=== PATIENT | male | born 1950 ===

== ENCOUNTER 2016-03-08 23:09 | Inpatient (IN) ==
[2016-03-09] MEDS ORDERED: ALUM/MAG/SIMETH/LIDO VISC 1:1 30 ML BOTTLE PO STA (00:51)
[2016-03-09] MEDS ORDERED: SODIUM CHLORIDE 0.9% 500 ML IV STA (00:51)
[2016-03-09] MEDS ORDERED: ONDANSETRON 4 MG/2 ML VIAL IV STA (00:51)
[2016-03-09] MEDS ORDERED: HYDROmorphone 2 MG/1 ML VIAL IV STA (00:51)
[2016-03-09] MEDS ORDERED: PANTOPRAZOLE 40 MG VIAL IV STA (00:51)
[2016-03-09] MEDS ORDERED: HYDROmorphone 2 MG/1 ML VIAL ONE (00:57)
[2016-03-09] MEDS ORDERED: PANTOPRAZOLE 40 MG VIAL IV ONE (00:57)
[2016-03-09] MEDS ORDERED: ONDANSETRON 4 MG/2 ML VIAL ONE ×2 (00:57→14:46)
[2016-03-09] MEDS ORDERED: ALUM/MAG/SIMETH/LIDO VISC 1:1 30 ML BOTTLE PO ONE (00:58)
[2016-03-09 01:33] LABS: Basophils % 0.4 % (0.0-0.8); Eosinophils # 0.1 10*3/uL (0.0-0.87); Eosinophils % 0.7 % (0.00-10.9); Hematocrit 47.7 VOL% (42.0-52.0); Hemoglobin 16.2 GM/DL (14.0-18.0); Immature Granulocytes % 0.4 %; Immature Granulocytes Absolute 0.03 #; Lymphocytes # 0.8 10*3/uL (1.4-4.0); Mean Corpuscular Hemoglobin 29 PG (27-34); Mean Corpuscular Volume 85.9 FL (87-102); Mean Platelet Volume 9.1 FL (9.6-12.0); Monocytes # 1.1 10*3/uL (0.11-0.8); Monocytes % 14.7 % (1.7-12.7); Neutrophils # 5.4 10*3/uL (1.4-7.4); Neutrophils % 72.8 % (38.7-73.9); Platelet Count 321 T/CUMM (130-400); Red Blood Count 5.55 MC/CUMM (3.8-5.5); Red Cell Distribution Width 13.1 % (9.3-17.3); White Blood Count 7.4 T/CUMM (4-12)
--- NOTE | 2016-03-09 01:33 | Emergency Department Note ---
Bobbi Castro Gwan, am scribing for, and in the presence of, Michael Hernandez MD 01 :17. Mary Castro Charles R, MD, personally performed the services described in this documentation, ascribed by Diandra Martines in my presence, and it is both accurate and complete . Arrival - Arrival Chief Complaint: Abdominal / Flank Pain Stated Complaint: vomitting ,gas ,pain due to hernia ED Nursing Triage Note: PT AMBULATORY TO TRIAGE WITH COMPLAINTS OF GAS AND HEARTBURN R/T HERNIA. STATES THAT HE WAS SEEN IN ED FOR SAME COMPLAINT AND WAS GIVEN PAIN MEDICINE AND REFERRED TO A SURGEON. STATES THAT HE CAN NOT WAIT TO SEE HIM. STATES THAT HE IS TOO SICK TO WAIT. STATES THAT HE VOMITED ONCE PRIOR TO COMING TO ED. STATES THAT HE HAD PRESSURE IN HIS BELLY AND HE FEELS LIKE HE MAY VOMIT AGAIN. STATES HE DRANK A COKE TO SEE IF THAT WOULD HELP AND IT MADE IT WORSE. Mode of Arrival: Ambulatory Limitations: No Limitations Source: Patient, Significant other, Old Records Reviewed, RN Notes Reviewed Time Seen by Provider: 03/09/16 00:36 - History of Present Illness HPI Narrative: Pt is a 65 y/o male who presents to the ED with a c/o N/V/D and abd pain. He describes his pain as burning and that it radiates to his back. Patient was last seen in ED 03/02/2016 for same reason. He confirmed that he has been sick for the past 2-3 days, that he takes a low dose aspirin everyday, that he is followed by Dr. Reed and Dr. Soto for afib and that he has noticed his distention in his abd. Patient denies constipation or any abd surgeries. Nurses note that pt drank a [employer] EMPLOYMENT [employer] with no relief and that he is scheduled for a f/u for hiatal hernia surgery next week. No other problems/complaints reported in ED. Onset (ago): day(s) Consistency: constant Severity: moderate Allergies/Adverse Reactions: Allergies Allergy/AdvReac Type Severity Reaction Status Date / Time No Known Allergies Allergy Verified 03/08/16 23:11 Home Medications: Home Medications Medication Instructions Recorded Confirmed Type Ascorbic Acid [Vitamin C] 1,000 mg PO BID 03/02/16 03/08/16 History Aspirin [Ecotrin] 325 mg PO DAILY 03/02/16 03/08/16 History Diltiazem Cd Cap [Cardizem CD] 240 mg PO BID 03/02/16 03/08/16 History HYDROcodone/ACETAMIN 7.5-325 1 tablet PO Q6H PRN #20 tablet 03/02/16 03/08/16 Rx [[place] 7.5-325] Lisinopril 10 mg PO DAILY 03/02/16 03/08/16 History Rosuvastatin [Crestor] 10 mg PO TUSA 03/02/16 03/08/16 History Review of System - Review of System 12 point system: reviewed and no additional remarkable complaints except as stated - Review of System Gastrointestinal: Present: as per HPI, abdominal pain, nausea, vomiting, diarrhea. Absent: constipation Medical,Surgical,& Family Hx - Medical History Cardio: History of: Hypertension Endocrine: History of: Dyslipidemia Genitourinary: History of: Prostate Problems Gastrointestinal: History of: GERD - Social History Smoking Status: Never smoker Frequency of Alcohol Use: None Type of Drug Use: None Exam Vital Signs: Vital Signs Temperature 97.0 F L 03/08/16 23:12 Pulse Rate 88 03/08/16 23:12 Respiratory Rate 20 03/08/16 23:12 Blood Pressure 135/68 03/08/16 23:12 O2 Sat by Pulse Oximetry 98 03/08/16 23:12 - General General appearance: alert, in no apparent distress - Head Head exam: Present: atraumatic, normocephalic - Eye Eye exam: Present: normal appearance, PERRL, EOMI - ENT ENT exam: Present: normal oropharynx, mucous membranes moist, TM's normal bilaterally, normal external ear exam - Neck Neck exam: Present: full ROM, trachea midline. Absent: tenderness, meningismus , lymphadenopathy, thyromegaly - Chest Chest inspection: Present: symmetric chest wall rise. Absent: tenderness - Respiratory Respiratory exam: Present: normal lung sounds bilaterally. Absent: respiratory distress - Cardiovascular Cardiovascular exam: Present: tachycardia - Abdominal Exam Abdominal exam: Present: distention, tenderness (epigastric tnedernss/pain), hypoactive bowel sounds - Extremities Exam Extremities exam: Present: other (+1 edema bilateral lower extremities) - Back Exam Back exam: Present: full ROM. Absent: tenderness - Neurological Exam Neurological exam: Present: alert, oriented X3, CN II-XII intact. Absent: motor sensory deficit - Psychiatric Psychiatric exam: Present: normal affect, normal mood - Skin Skin exam: Present: warm, dry, intact, normal color Course - Consultations Consultation #1: Dr Sosa will admit pt Time: 02:59 Results - Labs CBC & BMP: 03/09/16 01:07 03/09/16 01:07 Lab Results: I have reviewed the patients labs Labs: Laboratory Tests 03/09/16 01:07 WBC 7.4 RBC 5.55 H Hgb 16.2 Hct 47.7 MCV 85.9 L Plt Count 321 MPV 9.1 L Lymph % (Auto) 11.0 L [place] % (Auto) 14.7 H Lymph # (Auto) 0.8 L [place] # (Auto) 1.1 H Laboratory Tests 03/09/16 01:07 Sodium 141 Potassium 4.3 Chloride 103 Carbon Dioxide 24 Anion Gap 18.3 H BUN 23 H Creatinine 1.00 BUN/Creatinine Ratio 23.00 H Glucose 121 H Laboratory Tests 03/09/16 03/09/16 01:07 01:07 Urine pH 5.0 Ur Specific [place] 1.050 H Urine Ketones 20 Urine Urobilinogen < 2.0 H Urine RBC 1 Urine WBC 1 Ur Squamous Epith Cells Occasional Urine Mucus Occasional Blood Type O POSITIVE Antibody Screen Negative Disposition Clinical Impression: Abdominal pain, Inguinal hernia, Small bowel obstruction, distal acute esophagitis, incarcerated small bowel Case discussed with: patient, patient's family Disposition: Still a Patient Condition: Stable Time of Disposition: 03:06
[2016-03-09 02:13] LABS: Alanine Aminotransferase 20 U/L (16-61); Albumin 3.9 G/DL (3.4-5.0); Alkaline Phosphatase 85 U/L (45-117); Amylase 57 U/L (25-115); Aspartate Amino Transferase 15 U/L (0-37); Blood Urea Nitrogen 23 MG/DL (7-18); Calcium 9.3 MG/DL (8.5-10.1); Glucose 121 MG/DL (74-106); Magnesium 2.1 MG/DL (1.8-2.4); Osmolality,Calculated 285.3 MOS/KG (273-304); Potassium 4.3 MMOL/L (3.5-5.1); Sodium 141 MMOL/L (136-145); Total Protein 7.2 G/DL (6.4-8.3); Troponin I Only < 0.015 NG/ML (0.00-0.045)
[2016-03-09 02:27] LABS: Apearance,Urine CLEAR (Clear); Bilirubin,Urine Negative (Negative); Blood, Urine Negative (Negative); Glucose,Urine (UA) Negative (Negative); Ketones,Urine 20 mg/dL (Negative); Mucus,Urine Occasional /LPF (Occasional); Nitrite,Urine Negative (Negative); Protein,Urine Negative; RBC,Urine 1 /HPF (0-4); Squamous Epithelial Cell,Urine Occasional /HPF (0-10); Urine Color Yellow (Yellow); Urine Urobilinogen < 2.0 EU/DL (0.2-1.0); WBC,Urine 1 /HPF (0-6)
[2016-03-09] MEDS ORDERED: ONDANSETRON 4 MG/2 ML VIAL IV PRN (03:45)
[2016-03-09] MEDS ORDERED: ACETAMINOPHEN 325 MG TABLET PO PRN ×2 (03:45→05:29)
[2016-03-09] MEDS ORDERED: HYDROmorphone 2 MG/1 ML VIAL IV PRN (03:45)
[2016-03-09] MEDS: SODIUM CHLORIDE 0.9% 1,000 ML IV SCH ×2 (04:33→15:39)
--- NOTE | 2016-03-09 05:25 | General Surg History&Physical ---
Assessment and Plan - Time spent with patient Time spent with patient: Greater than 30 minutes (1) Inguinal hernia Status: Acute Assessment and plan: Impression: 1. Chronic incarcerated right inguinal hernia 2. Partial small bowel obstruction secondary to right angle hernia 3. History of atrial fibrillation Current Visit: Yes Qualifiers: Obstruction and gangrene presence: with obstruction but without gangrene Laterality: unilateral Recurrence: not specified as recurrent Qualified Code (s): K40.30 - Unilateral inguinal hernia, with obstruction, without gangrene, not specified as recurrent History of Present Illness Chief complaint: recurrent abdominal pain with nausea and vomiting and a chronic hernia History of present illness: Mr. Jay is a 65 year old male -Greek who has known that he's had a large right angle hernia for years but has neglected to have anything done to it. Over the past year has had a little more symptoms from the hernia itself. Apparently was in the emergency room on Tuesday with this discomfort in the hernia and was sent home at that time. He returned to day because he was having more crampy discomfort diarrhea and some nausea and vomiting. He did not have Tuesday. CT scan shows a probably has a partial small bowel obstruction that he has a right angle hernia with bowel out in it. The hernia itself is not unusually indurated or swollen or unusually tender. At this point though I think we'll just keep him nothing by mouth and flat on and plan to try to do his surgery today and see if we can get this reduced and fixed. Patient has a history of atrial fibrillation that Dr. Mata has been treating but he is just been on aspirin. We'll see if we can get cardiology to see him early this morning getting cleared for surgery this afternoon. Home Medications Medication Instructions Recorded Confirmed Type Ascorbic Acid [Vitamin C] 1,000 mg PO BID 03/02/16 03/08/16 History Aspirin [Ecotrin] 325 mg PO DAILY 03/02/16 03/08/16 History Diltiazem Cd Cap [Cardizem CD] 240 mg PO BID 03/02/16 03/08/16 History HYDROcodone/ACETAMIN 7.5-325 1 tablet PO Q6H PRN #20 tablet 03/02/16 03/08/16 Rx [[place] 7.5-325] Lisinopril 10 mg PO DAILY 03/02/16 03/08/16 History Rosuvastatin [Crestor] 10 mg PO TUSA 03/02/16 03/08/16 History Allergies Allergy/AdvReac Type Severity Reaction Status Date / Time No Known Allergies Allergy Verified 03/08/16 23:11 Medical,Surgical,& Family Hx - Medical History Cardio: History of: Hypertension Endocrine: History of: Dyslipidemia No history of: Diabetes Mellitus (IDDM) Genitourinary: History of: Prostate Problems Gastrointestinal: History of: GERD - Social History Smoking Status: Never smoker Frequency of Alcohol Use: None Type of Drug Use: None Lives With:: Spouse Functional capacity: independent ambulation Exam - Constitutional Vitals: Period Temp Pulse Resp BP Sys/Slater Pulse Ox Last 24 Hr 98.2 F 75-94 15-20 123-141/75-86 95-97 General appearance: no acute distress - Head Head exam: Present: normal inspection - ENT ENT exam: Present: normal exam - Respiratory Respiratory exam: Present: clear to auscultation bilaterally, rales - Cardiovascular Cardiovascular exam: Present: RRR - GI/Abdominal GI/Abdominal exam: Present: distended, hypoactive bowel sounds, hernia (chronic large right inguinal hernia withskin induration but nonreducible), soft. Absent : tenderness - Extremities Exam Extremities exam: Present: normal inspection - Neurological Exam Neurological exam: Present: alert, oriented X3, CN II-XII intact - Skin Skin exam: Present: normal color, warm, dry 12 point system: reviewed and no additional remarkable complaints except as stated Results - Labs CBC & BMP: 03/09/16 01:07 03/09/16 01:07 Lab Results: I have reviewed the past 24 hour labs - Diagnostic Findings Procedure: CT Abdomen and Pelvis: report reviewed by me (small bowel obstruction with running we'll hernia)
--- NOTE | 2016-03-09 06:23 | CT Report ---
Referring physician: Michael Hernandez EXAM: CT abdomen and pelvis with contrast DATE: March 09, 2016 COMPARISON: None REASON: Right lower quadrant abdominal pain Preliminary report was provided by [facility]. TECHNIQUE: Axial images of the abdomen and pelvis were obtained after administration of 100 cc of Omnipaque 350 IV contrast. Coronal and sagittal reformatted images were also provided. Total DLP is 1277.7 mGy*cm. FINDINGS: Lower thorax: There is a trace right pleural fluid and minimal scattered atelectasis or scarring at both lung bases. There is also cardiomegaly. The lower esophageal wall is diffusely prominent, but this may be related to poor distention. Evaluation for esophagitis is limited. ABDOMEN: Liver: There are a few scattered hypodensities within the liver, measuring up to 1.9 cm within the caudate. They are most consistent with cysts. Gallbladder and bile ducts: The gallbladder is unremarkable. No biliary duct dilatation is present. Pancreas: There is a 1 cm hypodensity at the anterior aspect of the pancreatic tail on image 45, series 2. This could represent a pancreatic pseudocyst or other benign process, but followup would be helpful to confirm benignity. The pancreas is otherwise unremarkable. Spleen: Unremarkable. Adrenals: Unremarkable. Kidneys and ureters: No hydronephrosis is present. There are bilateral renal cysts. The largest is located at the upper posterior aspect of the right kidney and measures 8.8 cm. The ureters are unremarkable as visualized. PELVIS: Bladder: Unremarkable. Reproductive: The prostate is enlarged, measuring 5.5 cm in width. ABDOMEN AND PELVIS: Bowel: The stomach is distended with fluid and air, and there are multiple distended loops of small bowel with air-fluid levels present. The proximal and distal small bowel are dilated. There is a large right inguinal hernia which contains the ileocecal junction and cecum. This likely represents a transition point. Mild free fluid and fat stranding are seen in this region, and the bowel may be incarcerated at the right inguinal hernia. Of note, this hernia extends into the scrotum. Appendix: The appendix is not identified. Vasculature: The abdominal aorta is normal in size. Peritoneum/retroperitoneum: No free air is identified. There is minimal free fluid within the right inguinal hernia as mentioned above. Lymph nodes: There are a few upper normal-sized lymph nodes within the upper abdomen, but no suspicious adenopathy is seen. Abdominal/pelvic wall: There is a large right inguinal hernia containing bowel and extending into the right scrotum as mentioned above. There is also a small fat-containing left inguinal hernia. Bones: Mild scattered degenerative change is seen at pelvis with marginal spurring at the SI joints. There is also mild to moderate degenerative change at the spine. No acute osseous process is seen. IMPRESSION: 1. The stomach and proximal and distal small bowel are distended with air-fluid levels present. There is a large right inguinal hernia, extending into the scrotum, which contains the ileocecal junction and cecum and is concerning for a transition point. There is also minimal free fluid and fat stranding at the right inguinal hernia, and the bowel may be incarcerated in this region. Surgical consultation is recommended. 2. The lower esophageal wall is diffusely prominent, but this may be related to poor distention. Evaluation for esophagitis is limited 3. Minimal right pleural fluid and minimal scattered atelectasis or scarring at both lung bases. There is also cardiomegaly. 4. Probable hepatic and bilateral renal cysts. 5. Small fat-containing left inguinal hernia. 6. 1 cm hypodensity at the anterior aspect of the pancreatic tail. This could represent a pancreatic pseudocyst or other benign process, but followup would be helpful to confirm benignity. The CT exam was performed using one or more of the following dose reduction techniques: Automated exposure control and adjustment of the mA and/or kV according to patient size. PROCEDURE INTERPRETED AT [facility] DEPARTMENT OF RADIOLOGY Final Report Signed by: Dr. Jose Elias Latham
[2016-03-09] MEDS: DEXTROSE 5% NACL 0.45% 1,000 ML IV SCH ×2 (06:40→15:39)
--- NOTE | 2016-03-09 06:52 | XRay Report ---
Referring Physician: Michael Hernandez Exam: XR abdomen 2V Date: March 09, 2016 at 1:44 AM Reason: Generalized abdominal pain Comparison: CT abdomen and pelvis March 09, 2016 Findings: There is contrast within the urinary tract from a recent CT. Multiple distended loops of small bowel are present and are concerning for small bowel obstruction. The renal shadows are largely obscured. No acute osseous process or free air is seen. Impression: There are multiple distended loops of small bowel with air-fluid levels present. This is consistent with small bowel obstruction. PROCEDURE INTERPRETED AT [facility] DEPARTMENT OF RADIOLOGY Final Report Signed by: Dr. Jose Elias Latham
[2016-03-09 06:55] LABS: Basophils % 0.3 % (0.0-0.8); Eosinophils # 0.1 10*3/uL (0.0-0.87); Hematocrit 48.9 VOL% (42.0-52.0); Hemoglobin 15.9 GM/DL (14.0-18.0); Immature Granulocytes % 0.3 %; Immature Granulocytes Absolute 0.02 #; Lymphocytes # 1.3 10*3/uL (1.4-4.0); Lymphocytes % 17.9 % (21.2-54.2); Mean Corpuscular HGB Conc 32.5 GM/DL (32-36); Mean Corpuscular Hemoglobin 29 PG (27-34); Mean Corpuscular Volume 88.7 FL (87-102); Mean Platelet Volume 9.2 FL (9.6-12.0); Monocytes # 1.2 10*3/uL (0.11-0.8); Monocytes % 17.3 % (1.7-12.7); Neutrophils # 4.4 10*3/uL (1.4-7.4); Neutrophils % 63.2 % (38.7-73.9); Platelet Count 311 T/CUMM (130-400); Red Blood Count 5.51 MC/CUMM (3.8-5.5); Red Cell Distribution Width 13.2 % (9.3-17.3)
[2016-03-09 07:10] LABS: INR 1.1; Partial Thromboplastin Time 30.6 SECS (0-40)
[2016-03-09 07:15] LABS: Band Neutrophils 7 % (0-10); Hypochromasia 1+; Lymphocytes 22 % (20-55); Segmented Neutrophils 57 % (50-85); Total Cells Counted 100
[2016-03-09 07:16] LABS: Platelet Estimate Normal
--- NOTE | 2016-03-09 07:26 | Cardiology Consult Note ---
Assessment and Plan - Time spent with patient Time spent with patient: Greater than 30 minutes (Including documentation chart review, office chart review and image review patient examination and interview) (1) Permanent atrial fibrillation Status: Chronic Current Visit: Yes (2) Hypertension Status: Chronic Current Visit: Yes (3) Inguinal hernia Status: Acute Current Visit: Yes Qualifiers: Obstruction and gangrene presence: with obstruction but without gangrene Laterality: unilateral Recurrence: not specified as recurrent Qualified Code (s): K40.30 - Unilateral inguinal hernia, with obstruction, without gangrene, not specified as recurrent (4) Small bowel obstruction Status: Acute Current Visit: Yes History of Present Illness - Data of Consult Patient: known to practice within the last 3 years Consult date: 03/09/16 Requesting Physician: Ron Sosa - Consult Narrative Reason for consult: atrial fibrillation and hypertension History of present illness: Mr. Jay is a 65 year old male patient of Dr. Hasmukh Hester who last saw him on 12/17/2015. He has no known coronary artery disease is never had left heart catheterization. He is followed by Dr. Hasmukh Mata for dyslipidemia hypertension, atrial fibrillation and pulmonary hypertension. He has chronic atrial fibrillation for which he takes an aspirin daily. He is not on chronic long-term anticoagulants. 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 For the last 1 year he has noticed a right inguinal hernia that approximately 24 hours ago became very painful associated with nausea and vomiting. He was found to have an incarcerated inguinal hernia and plans are for operation later today. The patient had a transthoracic echocardiogram in December 2015 which I reviewed his EF is 55% he has mild pulmonary hypertension with estimated right- sided pressures of 42 mmHg with moderate mitral regurgitation and moderate tricuspid regurgitation according to Dr. Mata's note. His left atrium was enlarged at 5 cm. The patient is scheduled for surgery later today. I discussed with the patient is functional status is very good and there is no further cardiovascular workup needed before proposed surgery. I reviewed his ECG has no ischemic appearing changes and other than atrial fibrillation his exam is very normal. His murmurs are auscultated but do not appear to be severe. Discussed with the patient I examined the patient I reviewed the chart I think the patient should proceed with proposed surgical procedure for repair of his hernia and small bowel resection as needed without further cardiovascular workup or intervention. I will be glad to assist in the perioperative period. Thank you for allowing us to contribute his care. CC: Ron Sosa MD - Home Medications and Allergies Home Medications: Home Medications Medication Instructions Recorded Confirmed Type Ascorbic Acid [Vitamin C] 1,000 mg PO BID 03/02/16 03/08/16 History Aspirin [Ecotrin] 325 mg PO DAILY 03/02/16 03/08/16 History Diltiazem Cd Cap [Cardizem CD] 240 mg PO BID 03/02/16 03/08/16 History HYDROcodone/ACETAMIN 7.5-325 1 tablet PO Q6H PRN #20 tablet 03/02/16 03/08/16 Rx [[place] 7.5-325] Lisinopril 10 mg PO DAILY 03/02/16 03/08/16 History Rosuvastatin [Crestor] 10 mg PO TUSA 03/02/16 03/08/16 History Allergies/Adverse Reactions: Allergies Allergy/AdvReac Type Severity Reaction Status Date / Time No Known Allergies Allergy Verified 03/08/16 23:11 - Constitutional Constitutional: Absent: anorexia, fatigue, increased appetite, night sweats, stops breathing during sleep - EENT Eyes: Absent: blurry vision, diplopia Ears: Absent: ear discharge Nose, mouth and throat: Absent: epistaxis - Cardiovascular Cardiovascular: Present: palpitations. Absent: chest pain at rest, chest pain with activity, diaphoresis, dyspnea, dyspnea on exertion, edema, radiating jaw, neck or arm pain, lightheadedness, orthopnea - Respiratory Respiratory: Absent: cough, dyspnea - Gastrointestinal Gastrointestinal: Present: abdominal pain, heartburn, nausea, vomiting - Genitourinary Genitourinary: Absent: difficulty urinating, hematuria - Musculoskeletal Musculoskeletal: Absent: arthralgias, joint swelling - Neurological Neurological: Absent: abnormal gait, disequilibrium - Psychiatric Psychiatric: Absent: anxiety, depression - Endocrine Endocrine: Absent: cold intolerance, heat intolerance - Hematologic/Lymphatic Hematologic/Lymphatic: Absent: easy bleeding, easy bruising Medical,Surgical,& Family Hx - Medical History Cardio: History of: Cardiac Dysrhythmia (Long-standing atrial fibrillation), Hypertension Endocrine: History of: Dyslipidemia No history of: Diabetes Mellitus (IDDM) Genitourinary: History of: Prostate Problems Gastrointestinal: History of: GERD - Family History Family History: Reports;: Family Cancer, Family Diabetes, Family Hypertension - Social History Smoking Status: Never smoker Frequency of Alcohol Use: None Type of Drug Use: None Marital Status: Lives With:: Spouse Functional capacity: independent ambulation Physical Examination Vital Signs Temp Pulse Resp BP Pulse Ox 97.0 F L 88 20 135/68 98 03/08/16 23:12 03/08/16 23:12 03/08/16 23:12 03/08/16 23:12 03/08/16 23:12 General: Present: Appears Well (Mild discomfort in his right groin) HEENT: Present: Normocephaly Neck: Present: Supple Neck, Midline Trachea Cardiac: Present: Irregularly Regular, S1/S2 (2/6 murmur of TR and MR is very difficult to separate the) Lungs: Present: Normal Exam Neuro: Present: Cranial Nerve 2-12 Intact Abdomen: Present: Other (Swelling and erythema in the right groin with bowel sounds but they are limited) Skin: Present: Clear, Rash Musculoskeletal: Present: Erythematous Joints, Decreased Range of Motion Extremities: Present: Normal Gait, No Clubbing, No Cyanosis Result/EKG - Labs CBC & BMP: 03/09/16 06:15 03/09/16 01:07 Labs: Laboratory Results - last 24 hr 03/09/16 03/09/16 06:15 06:15 WBC 7.0 RBC 5.51 H Hgb 15.9 Hct 48.9 MCV 88.7 MCH 29 MCHC 32.5 RDW 13.2 Plt Count 311 MPV 9.2 L Neut % (Auto) 63.2 Lymph % (Auto) 17.9 L [place] % (Auto) 17.3 H Eos % (Auto) 1.0 Baso % (Auto) 0.3 Neut # (Auto) 4.4 Lymph # (Auto) 1.3 L [place] # (Auto) 1.2 H Eos # (Auto) 0.1 Baso # (Auto) 0.0 Total Counted 100 Immature Gran % 0.3 Nucleated RBC % 0.0 Immature Gran # 0.02 Segmented Neutrophils 57 Band Neutrophils 7 Lymphocytes 22 Monocytes 14 Nucleated RBCs # 0.00 Platelet Estimate Normal Hypochromasia 1+ INR 1.1 PT Patient/Control Mix 12.0 Circ Anticoag PTT 30.6 - EKG EKG results: interpreted by me (Age fibrillation with nonspecific ST segment changes) Quality Measures - VTE Contraindication to Pharmacological VTE Prophylaxis: High Risk of Bleeding
[2016-03-09 07:28] LABS: Albumin 3.7 G/DL (3.4-5.0); Bilirubin,Total 0.7 MG/DL (0.2-1.0); Calcium 9.4 MG/DL (8.5-10.1); Magnesium 2.1 MG/DL (1.8-2.4); Osmolality,Calculated 281.4 MOS/KG (273-304); Potassium 4.9 MMOL/L (3.5-5.1); Total Protein 6.9 G/DL (6.4-8.3)
[2016-03-09] MEDS: metroNIDAZOLE INJ 500 MG in PREMIX 1 EACH IV SCH ×2 (08:31→19:05)
[2016-03-09] MEDS: DILTIAZEM CD 240 MG CAPSULE PO SCH ×2 (08:37→22:16)
[2016-03-09] MEDS: LISINOPRIL 10 MG TABLET PO SCH (08:37)
--- NOTE | 2016-03-09 09:12 | XRay Report ---
Referring Physician: Michael Hernandez Exam: XR abdomen 2V Date: March 09, 2016 at 7:34 AM Reason: Generalized abdominal pain Comparison: Abdomen 2 views March 09, 2016 at 1:44 AM Findings: There are again multiple distended loops of small bowel with air-fluid levels present. This is again concerning for small bowel obstruction. No free air is identified. Contrast is seen within the bladder from a recent contrast CT. The renal shadows are obscured. The osseous structures appear stable. Impression: There are again several distended loops of small bowel with air-fluid levels present. This is concerning for small bowel obstruction. PROCEDURE INTERPRETED AT [facility] DEPARTMENT OF RADIOLOGY Final Report Signed by: Dr. Jose Elias Latham
--- NOTE | 2016-03-09 09:14 | XRay Report ---
XR chest 1V portable Indication: Respiratory preoperative evaluation Comparison: 10 August 2011 Findings: The heart and mediastinum are stable in size and configuration. The pulmonary vascularity is normal in caliber. No lung infiltrates, effusions, pneumothorax or other abnormality is demonstrated. Impression: No acute cardiopulmonary disease. PROCEDURE INTERPRETED AT [facility] DEPARTMENT OF RADIOLOGY Final Report Signed by: Dr. Keven Loredo
--- NOTE | 2016-03-09 09:35 | EKG Report ---
Stationary ECG Study [facility] ER Test Date: 03/09/2016 1:56:36 AM Pat Name: JOEY BLACK Department: Room: 326 Gender: M Finance Business Manager: : 1950 Requested by: Michael Early Order Number: [id number] Reading MD: NAKITA ROSEN Intervals [place] Rate: 91 P: 999 NC: 0 QRS: 26 QRSD: 99 T: -4 QT: 350 QTc: 399 Interpretive Statements ATRIAL FIBRILLATION ABNORMAL RHYTHM ECG Electronically Signed On 03-09-16 18:07:34 [employer]CIAL [employer] PRESIDENT by NAKITA ROSEN [email or web address]
[2016-03-09] MEDS: ASPIRIN EC 325 MG TABLET PO SCH (09:41)
[2016-03-09] MEDS: PANTOPRAZOLE 40 MG VIAL IV SCH (09:42)
[2016-03-09] MEDS: ROSUVASTATIN 10 MG TABLET PO SCH (09:42)
[2016-03-09] MEDS: ASCORBIC ACID 500 MG TABLET PO SCH ×2 (09:42→22:16)
[2016-03-09] MEDS ORDERED: BUPIVACAINE MPF 0.25% /EPI 30 ML VIAL ONE (13:24)
[2016-03-09] MEDS ORDERED: ceFAZolin 1,000 MG VIAL ONE (13:25)
[2016-03-09] MEDS ORDERED: CITRIC ACID/SODIUM CITRATE 30 ML UDCUP ONE (14:00)
[2016-03-09] MEDS ORDERED: SUCCINYLCHOLINE 200 MG/10 ML VIAL ONE (14:46)
[2016-03-09] MEDS ORDERED: PHENYLEPHRINE 1 MG/10 ML SYRINGE IV ONE (14:46)
[2016-03-09] MEDS ORDERED: KETOROLAC 30 MG/1 ML VIAL ONE (14:46)
[2016-03-09] MEDS: LACTATED RINGERS 1,000 ML IV SCH ×3 (14:50→16:45)
--- NOTE | 2016-03-09 17:51 | Operative Note ---
Date of procedure: 03/09/16 Pre-op diagnosis: incarcerated right inguinal hernia with small bowel obstruction. Post-op diagnosis: same Procedure: Operative note: Preoperative diagnosis: Incarcerated right inguinal hernia with colon and small bowel with small bowel obstruction Postoperative diagnosis: Incarcerated indirect inguinal hernia with colon and small bowel Procedure: 1. Reduction and high ligation of hernia sac with Steffanie mesh repair of inguinal floor 2. Appendectomy. Surgeon Dr. Sosa Bindery Manager Irina Prasad ACNP Anesthesia Gen. tracheal. Brief history. 65-year-old after [place] male presents with nausea and vomiting and abdominal distention with CT evidence of small bowel obstruction secondary to incarcerated and will hernia. 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 He comes at this time with obstruction and so elected go ahead and bring him to surgery after and cardiology cleared him. Procedure: With patient in the supine position prepped and draped in a sterile fashion Timeout and antibodies completed we approached this area of the right inguinal area. At that point we made an incision from the pubis to about two thirds way to the anteriorly crest. Extended this down through the skin subcutaneous tissues and Shantel's fashion to with notified the external oblique fascia. Immediately was a large hernia projecting out the external ring at this time and we had to mobilize this tissue to see the shelving edge of the inguinal ligament. At that point we made incision in the external big fascia and extended it through the external ring. At that point we then began to mobilize this large hernia sac to try to bring it up. We incised some cremasteric muscle fibers using electrocauterization controlling bleeding. We are able to get down and identify Poupart ligament and the internal oblique fascia. Once that was completed then I was able to continue to mobilize this sac and material. This was a large complicated hernia had trouble identifying the cord structures because of the size of this mass that we were dealing with. After dissection and we apparently entered a portion of the sac and couldn't see that this was descending colon and terminal ileum out in this sac. The appendix was out there with some up in the less present. I elected go across the mesoappendix with 2-0 Ethibond ties and Tate staple TA 30 across the base of the appendix to remove that. Once that was removed and we were able to reduce the bowel back into the abdomen. At that point with further difficulty we were finally able to identify the cord structures and dissected free since it was pretty well displaced by this indirect inguinal hernia. Eyes finally able to mobilize the sac off the cord structures and down to the internal ring. Once we had it opened and everything we had to dissected some tissue from the inside wall to get that to go back in. I then managed to put a pursestring suture on the inside under direct vision of 2-0 Ethibond. I then put 2 2-0 Ethibond ties around the anterior part of the sac and then we cut off the excess allowed this to retract back in. Once that was completed then I was able to close this ring a little bit by sewing the transversalis fascia in front and back across the base of this and ordered cast secure that area. We then took a keyhole mesh related and placed and sutured it and Steffanie style starting at the pubis and running along Poupart ligament to the internal ring with a 2-0 Prolene suture. At that point I then tacked the medial portion of the mesh to the transverse to the internal oblique fascia with interrupted 2-0 Prolene suture. Once that was in place and look good I crossed the wings with a 2-0 Prolene suture and we laid everything is in and washed it with an Ancef solution. By the cord structures and nerve back in place and we could admit a finger that opening without difficulty. At that point with a looking Clain we closed the external oblique fascia with interrupted 2-0 Ethibond suture to close Shantel's running 3-0 Vicryl and the skin running 4-0 Monocryl Dermabond was applied and the patient to was taken recovery room. Estimated blood loss 30 mL Sponge count correct 2 Drains none Complications none Condition stable satisfactory Anesthesia: JOSETTE Surgeon / Physician: Ron Sosa Bindery Manager: Irina Prasad Estimated blood loss: other (30 mL) Specimens: other (hernia sac and appendix) Condition: stable Disposition: floor Results - Labs CBC & BMP: 03/09/16 06:15 03/09/16 06:15 Discharge Plan - Discharge Medications No Action Rosuvastatin [Crestor] 10 mg PO TUSA Lisinopril 10 mg PO DAILY Aspirin [Ecotrin] 325 mg PO DAILY Ascorbic Acid [Vitamin C] 1,000 mg PO BID HYDROcodone/ACETAMIN 7.5-325 [[place] 7.5-325] 1 tablet PO Q6H PRN #20 tablet PRN Reason: Pain Diltiazem Cd Cap [Cardizem CD] 240 mg PO BID - Follow Up or Referral - Forms/Instructions
--- NOTE | 2016-03-09 17:56 | Anesthesia ---
Anesthesia Post OP - Post Ansesthetic Evaluation Patient seen in post op: Yes Resp: within normal limits CV: within normal limits Mental: within normal limits Temp: within normal limits Gloi-Hv-Fdmekrejd: within normal limits Nausea and Vomiting: within normal limits Pain: within normal limits
[2016-03-09] MEDS ORDERED: ACETAMINOPHEN 1,000 MG/100 ML VIAL IV ONE (17:57)
[2016-03-09] MEDS ORDERED: MIDAZOLAM 2 MG/2 ML VIAL ONE (17:57)
[2016-03-09] MEDS ORDERED: LACTATED RINGERS 2,000 ML IV ONE (17:57)
[2016-03-09] MEDS ORDERED: SEVOFLURANE 1 UNIT/15 MINUTE INH ONE (17:57)
[2016-03-09] MEDS ORDERED: fentaNYL 100 MCG/2 ML VIAL ONE (17:57)
[2016-03-09] MEDS ORDERED: MEPERIDINE 25 MG/1 ML VIAL ONE (18:15)
[2016-03-09] MEDS ORDERED: LABETALOL 20 MG/4 ML SYRINGE IV ONE (18:23)
[2016-03-09] MEDS ORDERED: MEPERIDINE 25 MG/1 ML VIAL IV ONE (18:25)
[2016-03-09 20:59] LABS: Hematocrit 46.1 VOL% (42.0-52.0); Hemoglobin 14.7 GM/DL (14.0-18.0)
[2016-03-09] MEDS: ceFAZolin 2,000 MG in PREMIX 1 EACH IV SCH (23:50)
[2016-03-10] MEDS: HYDROmorphone 2 MG/1 ML VIAL IV PRN ×3 (00:55→17:43)
[2016-03-10] MEDS: metroNIDAZOLE INJ 500 MG in PREMIX 1 EACH IV SCH ×4 (01:43→23:44)
[2016-03-10] MEDS: LACTATED RINGERS 1,000 ML IV SCH ×2 (03:13→22:49)
[2016-03-10] MEDS: SODIUM CHLORIDE 0.9% 1,000 ML IV SCH ×3 (03:14→22:49)
[2016-03-10] MEDS: DEXTROSE 5% NACL 0.45% 1,000 ML IV SCH ×4 (05:09→22:48)
[2016-03-10 05:24] LABS: Basophils % 0.5 % (0.0-0.8); Eosinophils % 0.4 % (0.00-10.9); Hematocrit 41.9 VOL% (42.0-52.0); Hemoglobin 13.7 GM/DL (14.0-18.0); Immature Granulocytes % 0.2 %; Immature Granulocytes Absolute 0.01 #; Lymphocytes # 0.8 10*3/uL (1.4-4.0); Lymphocytes % 14.2 % (21.2-54.2); Mean Corpuscular HGB Conc 32.7 GM/DL (32-36); Mean Corpuscular Hemoglobin 29 PG (27-34); Mean Corpuscular Volume 89.7 FL (87-102); Mean Platelet Volume 9.3 FL (9.6-12.0); Monocytes # 1.1 10*3/uL (0.11-0.8); Monocytes % 18.8 % (1.7-12.7); Neutrophils # 3.7 10*3/uL (1.4-7.4); Neutrophils % 65.9 % (38.7-73.9); Platelet Count 270 T/CUMM (130-400); Red Blood Count 4.67 MC/CUMM (3.8-5.5); Red Cell Distribution Width 13.4 % (9.3-17.3); White Blood Count 5.7 T/CUMM (4-12)
[2016-03-10 05:48] LABS: Band Neutrophils 6 % (0-10); Hypochromasia 1+; Lymphocytes 17 % (20-55); Platelet Estimate Normal; Segmented Neutrophils 64 % (50-85); Total Cells Counted 100
[2016-03-10 05:55] LABS: Calcium 7.6 MG/DL (8.5-10.1); Osmolality,Calculated 285.1 MOS/KG (273-304); Potassium 4.9 MMOL/L (3.5-5.1)
[2016-03-10] MEDS: ceFAZolin 2,000 MG in PREMIX 1 EACH IV SCH (07:24)
--- NOTE | 2016-03-10 08:21 | General Surgery Progress Note ---
Assessment and Plan - Time spent with patient Time spent with patient: Less than 30 minutes (1) Incarcerated right inguinal hernia Status: Acute Assessment and plan: 03/10/16 Stable post op repair of incarcerated right inguinal hernia with bowel obstruction. We'll continue NG suction for now; add Mylanta per tube. Hopefully he'll have some bowel activity soon and we can d/c the tube at that point. Otherwise stable. Current Visit: Yes Subjective Patient reports: Present: pain is less. Absent: nausea Exam - Constitutional Vitals: Period Temp Pulse Resp BP Sys/Slater Pulse Ox Last 24 Hr 97.4 F-100.4 F 79-150 17-24 104-158/56-88 91-99 General appearance: no acute distress, other (Lying quietly; NG in place. Pain is less.) - ENT ENT exam: Present: other (NG in place.) - Respiratory Respiratory exam: Present: rhonchi. Absent: wheezes - Cardiovascular Cardiovascular exam: Present: RRR - GI/Abdominal GI/Abdominal exam: Present: other (Abdomen slightly distended without guarding; moderately tender about the RLQ surgical site. No rebound tenderness or unusual distention. A few random bowel gas sounds auscultated. Incision clean, dry. Mild scrotal ecchymosis. ) Results - Labs CBC & BMP: 03/10/16 04:36 03/10/16 04:36 Lab Results: I have reviewed the past 24 hour labs (Post op labs stable.) Quality Measures - VTE Contraindication to Pharmacological VTE Prophylaxis: High Risk of Bleeding
[2016-03-10] MEDS: DILTIAZEM CD 240 MG CAPSULE PO SCH ×2 (11:45→20:41)
[2016-03-10] MEDS: ASPIRIN EC 325 MG TABLET PO SCH (11:45)
[2016-03-10] MEDS: PANTOPRAZOLE 40 MG VIAL IV SCH (11:47)
[2016-03-10] MEDS: ENOXAPARIN 40 MG/0.4 ML SYRINGE SUBCUT SCH (11:50)
[2016-03-10] MEDS: ALUMINUM/MAGNES/SIMETH MAX STR 30 ML UDCUP PO SCH ×3 (11:55→20:41)
[2016-03-10] MEDS: ASCORBIC ACID 500 MG TABLET PO SCH ×2 (11:55→20:42)
[2016-03-10] MEDS: LISINOPRIL 10 MG TABLET PO SCH (11:55)
[2016-03-10] MEDS ORDERED: METOPROLOL TARTRATE 25 MG TABLET PO ONE (12:49)
--- NOTE | 2016-03-10 12:54 | Cardiology Progress Note ---
Kristyn Castro April, RN, am scribing for, and in the presence of, Najma Rahman DO 12 :53. Assessment and Plan - Time spent with patient Time spent with patient: Less than 30 minutes (1) Inguinal hernia Status: Acute Assessment and plan: Inguinal hernia repair and appndectomy 03/09/16. Current Visit: Yes Qualifiers: Obstruction and gangrene presence: with obstruction but without gangrene Laterality: unilateral Recurrence: not specified as recurrent Qualified Code (s): K40.30 - Unilateral inguinal hernia, with obstruction, without gangrene, not specified as recurrent (2) Small bowel obstruction Status: Acute Current Visit: Yes (3) Hypertension Status: Chronic Current Visit: No (4) Permanent atrial fibrillation Status: Chronic Assessment and plan: increase Rx as per HPI Current Visit: Yes Cardiology - PN: Subj Interval history: Day 1 postop inguinal hernia repair and appendectomy. Resting in bed in no acute distress, oxygen in use. NG tube noted. He denies any chest pain, shortness of breath, or palpitations. He does note some tenderness at incision site. Pressures have been stable. I saw and examined the patient with Simons. The patient seen postop day 1 he has not had any chest pain. He had a temperature and has a rate that is about 100-110 and is irregular this is consistent with history of atrial fibrillation his rate is probably appropriate for his current setting. He has NG tube in place and states that he is feeling better he has had no flatus. I will add a low-dose beta-lori. If his blood pressure declines would hold STEFANY inhibitor during this interim. Exam (Progress Note) - Constitutional Vitals: Period Temp Pulse Resp BP Sys/Slater Pulse Ox Last 24 Hr 97.4 F-100.4 F 79-150 17-24 104-158/56-88 91-99 General appearance: no acute distress, over weight - Head Head exam: Absent: abrasion, hematoma - Eye Eye exam: Absent: periorbital swelling, laceration to eyelids - ENT ENT exam: Present: other (NG tube) - Neck Neck exam: Absent: tenderness - Respiratory Respiratory exam: Present: clear to auscultation bilaterally, other (oxygen in use via NBP). Absent: accessory muscle use, chest wall tenderness, wheezes - Cardiovascular Cardiovascular exam: Present: irregular rhythm - GI/Abdominal GI/Abdominal exam: Present: distended, firm, hypoactive bowel sounds. Absent: tenderness - Extremities Exam Extremities exam: Absent: calf tenderness, edema - Back Exam Back exam: Absent: muscle spasm, vertebral tenderness - Neurological Exam Neurological exam: Present: alert, oriented X3 - Psychiatric Psychiatric exam: Present: normal affect, normal mood - Skin Skin exam: Present: warm, dry Result/EKG - Labs CBC & BMP: 03/10/16 04:36 03/10/16 04:36 Labs: Laboratory Results - last 24 hr 03/09/16 03/10/16 03/10/16 20:54 04:36 04:36 WBC 5.7 RBC 4.67 Hgb 14.7 13.7 L Hct 46.1 41.9 L MCV 89.7 MCH 29 MCHC 32.7 RDW 13.4 Plt Count 270 MPV 9.3 L Neut % (Auto) 65.9 Lymph % (Auto) 14.2 L [place] % (Auto) 18.8 H Eos % (Auto) 0.4 Baso % (Auto) 0.5 Neut # (Auto) 3.7 Lymph # (Auto) 0.8 L [place] # (Auto) 1.1 H Eos # (Auto) 0.0 Baso # (Auto) 0.0 Total Counted 100 Immature Gran % 0.2 Nucleated RBC % 0.0 Immature Gran # 0.01 Segmented Neutrophils 64 Band Neutrophils 6 Lymphocytes 17 L Monocytes 13 Nucleated RBCs # 0.00 Platelet Estimate Normal Hypochromasia 1+ Sodium 142 Potassium 4.9 Chloride 106 Carbon Dioxide 28 Anion Gap 12.9 BUN 19 H Creatinine 1.30 GFR Calculation 70 BUN/Creatinine Ratio 14.00 Glucose 115 H Calculated Osmolality 285.1 Calcium 7.6 L Quality Measures - VTE Contraindication to Pharmacological VTE Prophylaxis: High Risk of Bleeding Lacey Castro Shea, DO, personally performed the services described in this documentation, ascribed by Savannah Simons RN in my presence, and it is both accurate and complete .
[2016-03-10] MEDS: METOPROLOL TARTRATE 25 MG TABLET PO SCH (20:42)
[2016-03-11] MEDS: HYDROmorphone 2 MG/1 ML VIAL IV PRN ×3 (03:42→21:58)
[2016-03-11] MEDS: ALUMINUM/MAGNES/SIMETH MAX STR 30 ML UDCUP PO SCH ×2 (03:44→10:21)
[2016-03-11] MEDS: SODIUM CHLORIDE 0.9% 1,000 ML IV SCH (05:59)
--- NOTE | 2016-03-11 06:08 | XRay Report ---
Referring Physician: Ron Sosa Exam: XR chest 1V portable Date: March 10, 2016 at 11:44 PM Reason: NG tube placement Comparison: Chest one view portable March 09, 2016 Findings: A feeding tube is in place with its distal tip within the gastric fundus. The cardiac silhouette is again enlarged. The visualized lungs are clear. There are again distended loops of small bowel which is concerning for small bowel obstruction. The visualized osseous structures appear stable. Impression: A feeding tube is now in place with its distal tip within the gastric fundus. PROCEDURE INTERPRETED AT [facility] DEPARTMENT OF RADIOLOGY Final Report Signed by: Dr. Jose Elias Latham [facility] HOSPITALEsther
[2016-03-11] MEDS: DEXTROSE 5% NACL 0.45% 1,000 ML IV SCH ×2 (06:36→07:15)
[2016-03-11 06:46] LABS: Basophils % 0.6 % (0.0-0.8); Eosinophils % 0.6 % (0.00-10.9); Hematocrit 41.5 VOL% (42.0-52.0); Hemoglobin 13.3 GM/DL (14.0-18.0); Immature Granulocytes % 0.6 %; Immature Granulocytes Absolute 0.04 #; Lymphocytes # 0.9 10*3/uL (1.4-4.0); Lymphocytes % 13.1 % (21.2-54.2); Mean Corpuscular Hemoglobin 29 PG (27-34); Monocytes # 1.4 10*3/uL (0.11-0.8); Monocytes % 19.9 % (1.7-12.7); Neutrophils # 4.6 10*3/uL (1.4-7.4); Neutrophils % 65.2 % (38.7-73.9); Platelet Count 263 T/CUMM (130-400); Red Blood Count 4.61 MC/CUMM (3.8-5.5); Red Cell Distribution Width 13.3 % (9.3-17.3); White Blood Count 7.1 T/CUMM (4-12)
[2016-03-11 07:08] LABS: Band Neutrophils 4 % (0-10); Eosinophils 1 % (0-10); Hypochromasia 1+; Lymphocytes 11 % (20-55); Ovalocytes Slight; Platelet Estimate Normal; Segmented Neutrophils 58 % (50-85); Total Cells Counted 100
[2016-03-11 07:17] LABS: Albumin 2.7 G/DL (3.4-5.0); Bilirubin,Total 1.7 MG/DL (0.2-1.0); Calcium 7.6 MG/DL (8.5-10.1); Potassium 4.4 MMOL/L (3.5-5.1); Total Protein 5.4 G/DL (6.4-8.3)
--- NOTE | 2016-03-11 09:25 | General Surgery Progress Note ---
Assessment and Plan - Time spent with patient Time spent with patient: Less than 30 minutes (1) Incarcerated right inguinal hernia Status: Acute Assessment and plan: 03/11/16 Progressing well. We'll stop Kim, NG & allow clears; trim back IV fluids and try to get him moving. 03/10/16 Stable post op repair of incarcerated right inguinal hernia with bowel obstruction. We'll continue NG suction for now; add Mylanta per tube. Hopefully he'll have some bowel activity soon and we can d/c the tube at that point. Otherwise stable. Current Visit: Yes Subjective Patient reports: Present: feels better, pain is less, bowel movement. Absent: shortness of breath Exam - Constitutional Vitals: Period Temp Pulse Resp BP Sys/Slater Pulse Ox Last 24 Hr 98.3 F-100 F 72-110 18-20 103-130/58-73 90-97 General appearance: no acute distress - Respiratory Respiratory exam: Present: rhonchi. Absent: rales, wheezes - Cardiovascular Cardiovascular exam: Present: RRR - GI/Abdominal GI/Abdominal exam: Present: distended, hypoactive bowel sounds, other (Abdomen a little softer; hypoactive bowel sounds. Incision clean, dry. He has had bowel movements and gas per rectum.) - Extremities Exam Extremities exam: Present: normal inspection Results - Labs CBC & BMP: 03/11/16 06:34 03/11/16 06:34 Lab Results: I have reviewed the past 24 hour labs (Labs stable.) Quality Measures - VTE Contraindication to Pharmacological VTE Prophylaxis: High Risk of Bleeding
[2016-03-11] MEDS: metroNIDAZOLE INJ 500 MG in PREMIX 1 EACH IV SCH ×3 (10:06→23:23)
[2016-03-11] MEDS: PANTOPRAZOLE 40 MG VIAL IV SCH (10:07)
[2016-03-11] MEDS: DILTIAZEM CD 240 MG CAPSULE PO SCH ×2 (10:14→21:50)
[2016-03-11] MEDS: LISINOPRIL 10 MG TABLET PO SCH (10:15)
[2016-03-11] MEDS: ASPIRIN EC 325 MG TABLET PO SCH (10:15)
[2016-03-11] MEDS: ASCORBIC ACID 500 MG TABLET PO SCH ×2 (10:16→21:50)
[2016-03-11] MEDS: METOPROLOL TARTRATE 25 MG TABLET PO SCH ×2 (10:21→21:50)
--- NOTE | 2016-03-11 10:43 | Pathology Report from [facility] ---
ACCESSION # : [id number] PATIENT NAME : Joey Black ORDERING DR : CARO GUDINO MD CLINICAL HX: Chronic incarcerated RT inguinal hernia POST-OP DX: Same SPECIMEN INFO: #1 Lipoma of the cord, #2 Appendix #3 Hernia sac GROSS DESCRIPTION: Received in formalin in three parts labeled:#1 "JOEY BLACK & #1" is a fatty somewhat fibromembraneous yellow brown fatty tissue fragment measuring 12.5 x 2.8 cm. Station [employer]ice sections are submitted in cassette #1.# 2 "JOEY BLACK & #2" is an appendix and attached appendiceal fat measuring 6 x 0.7 cm. The serosa is riggins elizabeth. The proximal end contains a dark green material with white granules. Sectioning reveals the granules to be part of a 3 x 0.4 cm fecalith. No perforations are identified. Station Mechanic Apprentice sections are submitted in cassette #2.#3 "JOEY BLACK & #3" is a hyperemic pink elizabeth fibromembraneous tissue fragment measuring 15.2 x 8 cm. Station Mechanic Apprentice sections are submitted in cassette #3. DIAGNOSIS FOR JOEY BLACK: #1 LIPOMA OF CORD: Mature adipose tissue consistent with lipoma.#2 APPENDIX: Focal acute appendicitis in the tip of the appendix.#3 HERNIA SAC: Fibrovascular connective tissue with adipose tissue and mild chronic inflammation consistent with clinical history of incarcerated inguinal hernia. SERVICE DATE: 03/10/2016 REPORT DATE: 03/11/2016 PATHOLOGIST: Nneka Lagunas III, M.D. MTDD
[2016-03-11] MEDS: ENOXAPARIN 40 MG/0.4 ML SYRINGE SUBCUT SCH (13:00)
--- NOTE | 2016-03-11 16:57 | Cardiology Progress Note ---
Kristyn Castro April, RN, am scribing for, and in the presence of, Najma Rahman DO 16 :57. Assessment and Plan - Time spent with patient Time spent with patient: Less than 30 minutes (1) Inguinal hernia Status: Resolved Assessment and plan: Inguinal hernia repair and appndectomy 03/09/16. Current Visit: Yes Qualifiers: Obstruction and gangrene presence: with obstruction but without gangrene Laterality: unilateral Recurrence: not specified as recurrent Qualified Code (s): K40.30 - Unilateral inguinal hernia, with obstruction, without gangrene, not specified as recurrent (2) Small bowel obstruction Status: Resolved Current Visit: Yes (3) Hypertension Status: Chronic Current Visit: No (4) Permanent atrial fibrillation Status: Chronic Current Visit: Yes Cardiology - PN: Subj Interval history: Day 2 postop inguinal hernia repair and appendectomy. He has NG tube and does report having flatus. Resting in bed in no acute distress. He denies any chest pain, shortness of breath, or palpitations. His heart rates recorded during the night were not as high last night. I discussed with Mr. Jay today about anticoagulation. He states Dr. Mata has had this discussion with him multiple times before. Technically at age 65 he has a chads score of 1. This is a riggins area for anticoagulation. He states that the conclusion that he and Dr. Mata came to after discussing the risk benefits and options was that he would stay on aspirin for the duration until he turns 67 and then he would start anticoagulation. This is a very reasonable approach. His heart rate is controlled his NG tube out and he is eating clears we have nothing further to add at this time I will sign off. Please call if needed. Exam (Progress Note) - Constitutional Vitals: Period Temp Pulse Resp BP Sys/Slater Pulse Ox Last 24 Hr 98.3 F-100 F 72-110 18-20 103-130/58-73 90-97 General appearance: no acute distress, over weight - Head Head exam: Absent: abrasion, hematoma - Eye Eye exam: Absent: periorbital swelling, laceration to eyelids - ENT ENT exam: Present: other (NG tube) - Neck Neck exam: Absent: tenderness - Respiratory Respiratory exam: Present: clear to auscultation bilaterally. Absent: accessory muscle use, chest wall tenderness - Cardiovascular Cardiovascular exam: Present: irregular rhythm - GI/Abdominal GI/Abdominal exam: Present: distended, firm, hypoactive bowel sounds. Absent: tenderness - Extremities Exam Extremities exam: Absent: calf tenderness, edema - Neurological Exam Neurological exam: Present: alert, oriented X3 - Psychiatric Psychiatric exam: Present: normal affect, normal mood - Skin Skin exam: Present: warm, dry Result/EKG - Labs CBC & BMP: 03/11/16 06:34 03/11/16 06:34 Labs: Laboratory Results - last 24 hr 03/11/16 03/11/16 06:34 06:34 WBC 7.1 RBC 4.61 Hgb 13.3 L Hct 41.5 L MCV 90.0 MCH 29 MCHC 32.0 RDW 13.3 Plt Count 263 MPV 9.0 L Neut % (Auto) 65.2 Lymph % (Auto) 13.1 L [place] % (Auto) 19.9 H Eos % (Auto) 0.6 Baso % (Auto) 0.6 Neut # (Auto) 4.6 Lymph # (Auto) 0.9 L [place] # (Auto) 1.4 H Eos # (Auto) 0.0 Baso # (Auto) 0.0 Total Counted 100 Immature Gran % 0.6 Nucleated RBC % 0.0 Immature Gran # 0.04 Segmented Neutrophils 58 Band Neutrophils 4 Lymphocytes 11 L Monocytes 26 H Eosinophils 1 Nucleated RBCs # 0.00 Platelet Estimate Normal Hypochromasia 1+ Ovalocytes Slight Morphology Comment Sodium 143 Potassium 4.4 Chloride 106 Carbon Dioxide 29 Anion Gap 12.4 BUN 18 Creatinine 1.50 H GFR Calculation 59 BUN/Creatinine Ratio 12.00 Glucose 111 H Calculated Osmolality 287.0 Calcium 7.6 L Total Bilirubin 1.70 H AST 9 ALT 10 L Alkaline Phosphatase 64 Total Protein 5.4 L Albumin 2.7 L Globulin 2.7 Albumin/Globulin Ratio 1.0 L Quality Measures - VTE Contraindication to Pharmacological VTE Prophylaxis: High Risk of Bleeding ILacey Shea, , personally performed the services described in this documentation, ascribed by Savannah Simons RN in my presence, and it is both accurate and complete 657 .
[2016-03-11] MEDS: ONDANSETRON 4 MG/2 ML VIAL IV PRN (21:50)
[2016-03-12] MEDS: LACTATED RINGERS 1,000 ML IV SCH ×2 (00:27→19:48)
[2016-03-12] MEDS: DEXTROSE 5% NACL 0.45% 1,000 ML IV SCH ×3 (03:22→19:50)
--- NOTE | 2016-03-12 08:36 | General Surgery Progress Note ---
Assessment and Plan (1) Incarcerated right inguinal hernia Status: Acute Assessment and plan: 03/12/16 Pt looks a little more distended, even though he reports having a bowel movement. He had the entire cecum and ileocecal valve out in the hernia, so it's a little bothersome that he is distended, so we'll try to work on getting his bowels moving more efficiently. 03/11/16 Progressing well. We'll stop Kim, NG & allow clears; trim back IV fluids and try to get him moving. 03/10/16 Stable post op repair of incarcerated right inguinal hernia with bowel obstruction. We'll continue NG suction for now; add Mylanta per tube. Hopefully he'll have some bowel activity soon and we can d/c the tube at that point. Otherwise stable. Current Visit: Yes Subjective Patient reports: Present: bowel movement, vomiting (Vomited x 1 last night but none today; pt again reports BM & gas but none reported on I/O record.) Exam - Constitutional Vitals: Period Temp Pulse Resp BP Sys/Slater Pulse Ox Last 24 Hr 97.5 F-99.6 F 57-88 18-20 103-116/51-63 84-96 General appearance: no acute distress, over weight, other (Sitting up in chair, no acute changes, no apparent distress.) - Respiratory Respiratory exam: Present: rhonchi, other (He's a little reluctant to breathe deeply but says he's not in any pain and denies shortness of breath.). Absent: rales, wheezes - Cardiovascular Cardiovascular exam: Present: RRR - GI/Abdominal GI/Abdominal exam: Present: distended (Very distended; not particularly tense or tender. No guarding. ), hypoactive bowel sounds - Extremities Exam Extremities exam: Present: normal inspection - Neurological Exam Speech: Present: normal Results - Labs CBC & BMP: 03/11/16 06:34 03/11/16 06:34 Quality Measures - VTE Contraindication to Pharmacological VTE Prophylaxis: High Risk of Bleeding
[2016-03-12] MEDS: ASCORBIC ACID 500 MG TABLET PO SCH ×2 (09:38→21:14)
[2016-03-12] MEDS: METOPROLOL TARTRATE 25 MG TABLET PO SCH ×2 (09:39→21:14)
[2016-03-12] MEDS: ASPIRIN EC 325 MG TABLET PO SCH (09:39)
[2016-03-12] MEDS: LISINOPRIL 10 MG TABLET PO SCH (09:39)
[2016-03-12] MEDS: DILTIAZEM CD 240 MG CAPSULE PO SCH ×2 (09:39→21:14)
[2016-03-12] MEDS: PANTOPRAZOLE 40 MG VIAL IV SCH (09:41)
[2016-03-12] MEDS: ONDANSETRON 4 MG/2 ML VIAL IV PRN (09:44)
[2016-03-12] MEDS: METOCLOPRAMIDE 5 MG TABLET PO SCH ×3 (12:30→21:14)
[2016-03-12] MEDS: ENOXAPARIN 40 MG/0.4 ML SYRINGE SUBCUT SCH (12:31)
[2016-03-12] MEDS: metroNIDAZOLE INJ 500 MG in PREMIX 1 EACH IV SCH (17:34)
[2016-03-12] MEDS: ALUMINUM/MAGNES/SIMETH MAX STR 30 ML UDCUP PO PRN (19:50)
[2016-03-13 03:49] LABS: Basophils % 0.4 % (0.0-0.8); Eosinophils # 0.1 10*3/uL (0.0-0.87); Eosinophils % 1.2 % (0.00-10.9); Hematocrit 35.8 VOL% (42.0-52.0); Hemoglobin 11.8 GM/DL (14.0-18.0); Immature Granulocytes % 0.9 %; Immature Granulocytes Absolute 0.07 #; Lymphocytes # 1.2 10*3/uL (1.4-4.0); Lymphocytes % 16.4 % (21.2-54.2); Mean Corpuscular Hemoglobin 29 PG (27-34); Mean Corpuscular Volume 87.1 FL (87-102); Mean Platelet Volume 9.7 FL (9.6-12.0); Monocytes # 1.8 10*3/uL (0.11-0.8); Monocytes % 23.4 % (1.7-12.7); Neutrophils # 4.4 10*3/uL (1.4-7.4); Neutrophils % 57.7 % (38.7-73.9); Platelet Count 312 T/CUMM (130-400); Red Blood Count 4.11 MC/CUMM (3.8-5.5); Red Cell Distribution Width 13.2 % (9.3-17.3); White Blood Count 7.6 T/CUMM (4-12)
[2016-03-13 04:22] LABS: Albumin 2.5 G/DL (3.4-5.0); Bilirubin,Total 0.8 MG/DL (0.2-1.0); Calcium 7.4 MG/DL (8.5-10.1); Osmolality,Calculated 282.3 MOS/KG (273-304); Potassium 4.1 MMOL/L (3.5-5.1); Total Protein 5.1 G/DL (6.4-8.3)
[2016-03-13 05:03] LABS: Atypical Lymphocytes Few; Eosinophils 1 % (0-10); Lymphocytes 26 % (20-55); Metamyelocytes 1 %; Myelocytes 1 %; Platelet Estimate Normal; Segmented Neutrophils 52 % (50-85); Total Cells Counted 100
[2016-03-13] MEDS: ASCORBIC ACID 500 MG TABLET PO SCH ×2 (09:36→20:19)
[2016-03-13] MEDS: ROSUVASTATIN 10 MG TABLET PO SCH (09:36)
[2016-03-13] MEDS: METOCLOPRAMIDE 5 MG TABLET PO SCH ×4 (09:36→20:19)
[2016-03-13] MEDS: DILTIAZEM CD 240 MG CAPSULE PO SCH ×2 (09:36→20:19)
[2016-03-13] MEDS: PANTOPRAZOLE 40 MG VIAL IV SCH (09:37)
[2016-03-13] MEDS: ASPIRIN EC 325 MG TABLET PO SCH (09:37)
[2016-03-13] MEDS: ALUMINUM/MAGNES/SIMETH MAX STR 30 ML UDCUP PO PRN (09:44)
[2016-03-13] MEDS: DEXTROSE 5% NACL 0.45% 1,000 ML IV SCH (09:45)
--- NOTE | 2016-03-13 10:32 | Event Note ---
He feels much better now. He is passing flatus. He has no longer having nausea or vomiting and his abdomen is nontender it appears that he has a resolving ileus.
[2016-03-13] MEDS: METOPROLOL TARTRATE 25 MG TABLET PO SCH ×2 (14:14→20:17)
[2016-03-13] MEDS: LISINOPRIL 10 MG TABLET PO SCH (14:14)
[2016-03-13] MEDS: ENOXAPARIN 40 MG/0.4 ML SYRINGE SUBCUT SCH (14:16)
[2016-03-14] MEDS: DEXTROSE 5% NACL 0.45% 1,000 ML IV SCH ×2 (00:14→18:40)
--- NOTE | 2016-03-14 09:07 | Event Note ---
No complaints. Feels well. Afebrile vital signs stable. Advance diet.
[2016-03-14] MEDS: ASPIRIN EC 325 MG TABLET PO SCH (09:10)
[2016-03-14] MEDS: LISINOPRIL 10 MG TABLET PO SCH (09:11)
[2016-03-14] MEDS: METOPROLOL TARTRATE 25 MG TABLET PO SCH ×2 (09:11→20:33)
[2016-03-14] MEDS: DILTIAZEM CD 240 MG CAPSULE PO SCH ×2 (09:12→20:37)
[2016-03-14] MEDS: PANTOPRAZOLE 40 MG VIAL IV SCH (09:16)
[2016-03-14] MEDS: ASCORBIC ACID 500 MG TABLET PO SCH ×2 (09:16→20:37)
[2016-03-14] MEDS: METOCLOPRAMIDE 5 MG TABLET PO SCH ×4 (09:48→20:37)
[2016-03-14] MEDS: ENOXAPARIN 40 MG/0.4 ML SYRINGE SUBCUT SCH (12:13)
[2016-03-14] MEDS: ALUMINUM/MAGNES/SIMETH MAX STR 30 ML UDCUP PO PRN (23:51)
[2016-03-15] MEDS: ONDANSETRON 4 MG/2 ML VIAL IV PRN (00:57)
[2016-03-15] MEDS: DEXTROSE 5% NACL 0.45% 1,000 ML IV SCH ×3 (05:29→20:45)
[2016-03-15] MEDS: PANTOPRAZOLE 40 MG VIAL IV SCH (09:32)
[2016-03-15] MEDS: ASPIRIN EC 325 MG TABLET PO SCH (09:34)
[2016-03-15] MEDS: METOCLOPRAMIDE 5 MG TABLET PO SCH ×4 (09:34→20:41)
[2016-03-15] MEDS: METOPROLOL TARTRATE 25 MG TABLET PO SCH ×2 (09:35→20:41)
[2016-03-15] MEDS: DILTIAZEM CD 240 MG CAPSULE PO SCH ×2 (09:35→20:41)
[2016-03-15] MEDS: ASCORBIC ACID 500 MG TABLET PO SCH ×2 (09:36→20:41)
[2016-03-15] MEDS: LISINOPRIL 10 MG TABLET PO SCH (09:36)
--- NOTE | 2016-03-15 12:13 | General Surgery Progress Note ---
Assessment and Plan - Time spent with patient Time spent with patient: Less than 30 minutes (1) Inguinal hernia Status: Resolved Assessment and plan: Impression: 1. Chronic incarcerated right inguinal hernia 2. Partial small bowel obstruction secondary to right angle hernia 3. History of atrial fibrillation 03/15/2015 Patient is afebrile at this point time and doing fairly well without problems. He is started on some solid food yesterday and he is stating Kaiden's have his frequent bowel movements are loose and soft at this time. The incision looks clean and dry no unusual swelling or ecchymoses present. He has developed some increased scrotal swelling on the right side at this time from what he has had previously. At this point I'm still little bit concerned she still remains a little distended with hypoactive bowel sounds and he describes still a little bit of nausea especially at night without any significant vomiting. I'm a little concerned that he still not completely open that we may still have a degree of partial bowel obstruction. We will have him move and ambulate little bit more see basically had he does today could let him go home later today or first thing in the morning. Current Visit: Yes Qualifiers: Obstruction and gangrene presence: with obstruction but without gangrene Laterality: unilateral Recurrence: not specified as recurrent Qualified Code (s): K40.30 - Unilateral inguinal hernia, with obstruction, without gangrene, not specified as recurrent Subjective Patient reports: Present: no new complaints, pain is less, diarrhea, nausea, afebrile, other (swelling of the scrotum) Exam - Constitutional Vitals: Period Temp Pulse Resp BP Sys/Slater Pulse Ox Last 24 Hr 98.1 F-98.9 F 65-92 17-20 113-136/63-82 92-97 General appearance: mild distress - Head Head exam: Present: normal inspection - ENT ENT exam: Present: normal exam - Neck Neck exam: Present: normal inspection - Respiratory Respiratory exam: Present: clear to auscultation bilaterally, rales - Cardiovascular Cardiovascular exam: Present: RRR - GI/Abdominal GI/Abdominal exam: Present: distended, hypoactive bowel sounds, soft, other ( scrotal swelling) - Extremities Exam Extremities exam: Present: normal inspection - Neurological Exam Neurological exam: Present: alert, oriented X3, CN II-XII intact - Skin Skin exam: Present: normal color, warm, dry Results - Labs CBC & BMP: 03/13/16 03:10 03/13/16 03:10 Lab Results: I have reviewed the past 24 hour labs Quality Measures - VTE Contraindication to Pharmacological VTE Prophylaxis: High Risk of Bleeding
[2016-03-15] MEDS: ENOXAPARIN 40 MG/0.4 ML SYRINGE SUBCUT SCH (13:10)
[2016-03-16] MEDS: METOCLOPRAMIDE 5 MG TABLET PO SCH ×3 (06:36→16:05)
[2016-03-16 06:55] LABS: Basophils % 0.4 % (0.0-0.8); Eosinophils # 0.1 10*3/uL (0.0-0.87); Eosinophils % 1.3 % (0.00-10.9); Hemoglobin 12.5 GM/DL (14.0-18.0); Immature Granulocytes % 2.6 %; Immature Granulocytes Absolute 0.25 #; Lymphocytes # 1.4 10*3/uL (1.4-4.0); Lymphocytes % 14.3 % (21.2-54.2); Mean Corpuscular HGB Conc 32.9 GM/DL (32-36); Mean Corpuscular Hemoglobin 29 PG (27-34); Mean Corpuscular Volume 87.6 FL (87-102); Mean Platelet Volume 8.9 FL (9.6-12.0); Monocytes # 1.2 10*3/uL (0.11-0.8); Monocytes % 12.1 % (1.7-12.7); Neutrophils # 6.6 10*3/uL (1.4-7.4); Neutrophils % 69.3 % (38.7-73.9); Platelet Count 376 T/CUMM (130-400); Red Blood Count 4.34 MC/CUMM (3.8-5.5); Red Cell Distribution Width 13.2 % (9.3-17.3); White Blood Count 9.6 T/CUMM (4-12)
[2016-03-16 07:15] LABS: Calcium 7.7 MG/DL (8.5-10.1); Potassium 4.1 MMOL/L (3.5-5.1)
[2016-03-16] MEDS: ASPIRIN EC 325 MG TABLET PO SCH (09:25)
[2016-03-16] MEDS: DILTIAZEM CD 240 MG CAPSULE PO SCH (09:25)
[2016-03-16] MEDS: METOPROLOL TARTRATE 25 MG TABLET PO SCH (09:26)
[2016-03-16] MEDS: LISINOPRIL 10 MG TABLET PO SCH (09:26)
[2016-03-16] MEDS: ROSUVASTATIN 10 MG TABLET PO SCH (09:26)
[2016-03-16] MEDS: PANTOPRAZOLE 40 MG VIAL IV SCH (09:31)
[2016-03-16] MEDS: ASCORBIC ACID 500 MG TABLET PO SCH (09:31)
--- NOTE | 2016-03-16 09:47 | XRay Report ---
XR abdomen 2V Indication: Hernia repair in the right groin Comparison: Abdominal x-ray dated March 09, 2016 Technique: Frontal views of the abdomen in the supine and upright position Findings: There is mild opacification of the right lateral lower lung which may reflect early consolidative process such as pneumonia. Consider dedicated chest x-ray. Mild dilatation of small bowel throughout the mid and upper abdomen with suggestion of associated small bowel wall thickening. Findings suggest ileus versus small bowel obstruction with possible enteritis. Osseous structures appear unchanged. IMPRESSION: As above. PROCEDURE INTERPRETED AT [facility] DEPARTMENT OF RADIOLOGY Final Report Signed by: Dr Edouard Anand
[2016-03-16] MEDS: DEXTROSE 5% NACL 0.45% 1,000 ML IV SCH (12:58)
[2016-03-16] MEDS: ENOXAPARIN 40 MG/0.4 ML SYRINGE SUBCUT SCH (16:04)
--- NOTE | 2016-03-16 16:53 | Discharge Summary ---
Hospital Course - Hospital Course Hospital Course: Discharge summary: Discharge diagnosis: 1. Incarcerated right inguinal hernia 2. Small bowel obstruction secondary to the inguinal hernia 3. Postoperative ileus Procedure: Reduction of cecum and terminal ileum with incidental appendectomy and high ligation of hernia sac with Steffanie mesh repair of inguinal floor. Surgeon Dr. Sosa Brief summary: 65-year-old white male who has had a large right angle hernia for many years with not too many symptoms up. All the last several months he started to have increasing number of symptoms of discomfort and swelling. He was seen in emergency room several weeks prior to this admission with an episode of this area being out and a little and some nausea and vomiting associated with it. He was sent home for emergency room but returned with another episode of abdominal distention and evidence on CT that he had obstruction in relation to this hernia. This was extending down into the scrotal area at this point time, . He was not unusually tender in the hernia itself. He did have some small bowel obstruction and evidence at this point. We will elected to take him on the surgery and try to repair this hernia. At time of surgery he had cecum and terminal ileum out in the the sac along with the appendix up. We went ahead and removed the appendix at this time knowing that we weren't sure what position a vagotomy and later on and did not want to have something show up later that he had to deal with. At this point we went ahead and was able to reduce the hernia to high ligation of hernia sac and Steffanie mesh repair of inguinal floor. Postoperatively he did fairly well having to have NG tube down for about 48 hours before we could pull it we thought he was having some pretty good bowel sounds. Even though it was pulled he's continued to be distended somewhat and had a little nausea and occasional vomiting with it. Over time though the ileus did resolve and has dramatically improved with loose bowel movements at first he's been tolerated solid food down without any problems. His a abdomen was much softer today [place]'s showed an ileus pattern with no sign of any clear obstructive process at this point. He is doing well afebrile without any elevated white count so we've elected go ahead and discharge him at this time. He did develop some scrotal swelling over the last couple days with support has gotten a little bit better. I anticipate that this will improve with time and encouraged him not to be worried about this. We'll plan to follow him up in the office couple weeks and have given instructions as activity and care of the wound at this time. - Time spent with patient Time with patient DS: Greater than 30 minutes Diagnosis - Discharge Diagnosis (1) Inguinal hernia Status: Resolved Specialty Discharge - Follow Up or Referrals Follow up with: Ron Sosa MD [Physician] - 04/05/16 - Speciality Discharge Instructions Surgery Instructions: 1. Eats sensibly and drink plenty of fluids. 2. Avoid any constipation use laxative as needed. 3. Avoid heavy lifting or straining. 4. May ride in the car and may go up and down stairs. 5. No driving for at least a week [place] soreness improves. 6. Continue scrotal support. 7. Continue good wound care till he comes to the office Discharge Plan - Discharge Data Disposition: Disch To Home/Self Care Condition at Discharge: Stable Discharge Diet: advance to your usual diet Activity: increase activity as tolerated, no lifting Hygiene: may shower, keep area(s) dry Weight Bearing at Discharge: full weight bearing Driving: not for (For one week) Contact your physician if you experience:: fever over 101, Redness or swelling, Nausea/Vomiting, pain uncontrolled by pain medications Wound / Dressing Care Instructions: Wound care daily. Shower using soap of choice. Keep a light dressing of gauze 4 x 4's over the incision - Discharge Medications New Alum/Mag/Simeth Max Str Liquid [Mylanta Max Strength Liquid] 30 ml PO Q4H PRN #0 udcup PRN Reason: Dyspepsia Metoprolol Tartrate Tab [Lopressor Tab] 25 mg PO BID #30 tablet Acetaminophen Tab [Tylenol Tab] 650 mg PO Q6H PRN #0 tablet PRN Reason: Pain Mild (1-3) And/Or Fever Ascorbic Acid Tab [Vitamin C Tab] 1,000 mg PO BID tablet Metoclopramide Tab [Reglan Tab] 5 mg PO TIDAC #30 tablet Continue Rosuvastatin [Crestor] 10 mg PO TUSA Lisinopril 10 mg PO DAILY Aspirin [Ecotrin] 325 mg PO DAILY Ascorbic Acid [Vitamin C] 1,000 mg PO BID Diltiazem Cd Cap [Cardizem CD] 240 mg PO BID HYDROcodone/ACETAMIN 7.5-325 [[place] 7.5-325] 1 tablet PO Q6H PRN #30 tablet PRN Reason: Pain - Follow Up or Referral - Forms/Instructions Exam - Constitutional Vitals: Period Temp Pulse Resp BP Sys/Slater Pulse Ox Last 24 Hr 98.5 F-99.3 F 70-90 16-20 109-132/65-77 93-97 General appearance: no acute distress - Head Head exam: Present: normal inspection - ENT ENT exam: Present: normal exam - Neck Neck exam: Present: normal inspection - Respiratory Respiratory exam: Present: clear to auscultation bilaterally - Cardiovascular Cardiovascular exam: Present: regular rate and rhythm - GI/Abdominal GI/Abdominal exam: Present: hypoactive bowel sounds, soft, other (incision is healing well without problems. The scrotal swelling is stable may be a little bit less today). Absent: tenderness - Extremities Exam Extremities exam: Present: normal inspection. Absent: edema - Back Exam Back exam: Present: normal inspection - Neurological Exam Neurological exam: Present: alert, oriented X3, CN II-XII intact - Psychiatric Psychiatric exam: Present: normal affect, normal mood - Skin Skin exam: Present: normal color, warm, dry Discharge Results Labs on day of discharge: Labs from last 24 hours 03/16/16 03/16/16 06:34 06:34 WBC 9.6 RBC 4.34 Hgb 12.5 L Hct 38.0 L MCV 87.6 MCH 29 MCHC 32.9 RDW 13.2 Plt Count 376 D MPV 8.9 L Neut % (Auto) 69.3 Lymph % (Auto) 14.3 L [place] % (Auto) 12.1 Eos % (Auto) 1.3 Baso % (Auto) 0.4 Neut # (Auto) 6.6 Lymph # (Auto) 1.4 [place] # (Auto) 1.2 H Eos # (Auto) 0.1 Baso # (Auto) 0.0 Immature Gran % 2.6 Nucleated RBC % 0.0 Immature Gran # 0.25 Nucleated RBCs # 0.00 Sodium 143 Potassium 4.1 Chloride 109 H Carbon Dioxide 26 Anion Gap 12.1 BUN 5 L Creatinine 0.80 GFR Calculation 114 BUN/Creatinine Ratio 6.00 Glucose 90 Calculated Osmolality 281.0 Calcium 7.7 L DS: Provider Date of admission: 03/09/16 03:06 Primary care physician: . No PCP Attending physician on admission: Ron Sosa MD Consults: 03/09/16 03:45 Consult to Physician [CONS] Routine Comment: [facility] Consulting Provider: [facility] Provider Notified: Yes When should Consulting Provider be notified: In am Person Notified: nathan torrez Date Notified: 03/09/16 Time Notified: 07:39 03/09/16 05:36 Consult to Anesthesiology [CONS] Routine Consulting Provider: Reason for Anesthesiology: Pre-op Clearance 03/09/16 17:56 Consult to Pharmacy [CONS] Routine Reason for Pharmacy Consult: Adjust Meds Renal Funct Discharging clinician: Ron Sosa MD Expected date of discharge: 03/16/16
[2016-03-16 19:26] VITALS: BP 125/74
== END 2016-03-16 18:42 | disposition home or self-care (01) | DRG 342 ==
LOC: N.ED 23:09 → N.EDINP 03-09 03:06 → N.3E 03-09 04:24
PROVIDERS: ADMIT Specialist; ATTEND Specialist